=== PATIENT | female | born 1990 | race Caucasian/White ===

== ENCOUNTER 2016-11-08 12:07 | Emergency (ER) | payer OTHER ==
[~2016-11-08] VITALS: Ht 162.6 cm; Wt 55.0 kg
[2016-11-08 12:11] VITALS: BP 110/66; PULSE 93; RESP 14; TEMP 98.4; O2SAT 100
[2016-11-08] MEDS ORDERED: TRAZ50TA12 PO (13:54)
[2016-11-08] MEDS ORDERED: FLUO-1 PO (13:54)
--- NOTE | 2016-11-08 14:19 | PD ---
HPI Chief Complaint: Skin Problem Time Seen by Provider: 14:17 Travel History International Travel<30 days: No Contact w/Intl Traveler<30days: No Traveled to known affect area: No History of Present Illness HPI 25-year-old female presents to the emergency Department with complaint of a rash that has been going on for a couple months. The rashes to her face, bilateral upper extremities, bilateral lower extremities. She has been seen at a [facility], urgent care, dermatology. The heel builder scraped one of her spots said that there was nothing found. She was seen in urgent care last week and was treated for scabies and use the Elimite cream on Sunday. She is also being treated with Bactrim by the urgent care and is currently taking it at this time. She denies fever, chills, nausea, vomiting. Reports the rash is itchy at times. She says this started out as a blister appearing lesion and then scab over. Has been using hydrocortisone to some of the spots with improvement. Says that she has an infestation of mold, fleas, and possible other bugs in her house. No one else with a rash that occurs. Denies airway edema, stridor, wheezing, shortness of breath. Denies new detergents, lotions, soaps, medications, foods, and her mental exposures. Denies significant past medical history. No known allergies. No other modifying factors or associated signs and symptoms. PFSH Past Medical History Medical History: Denies Significant Hx Tetanus Vaccination: < 5 Years ?: Not LMP: 10/25/16 Social History Alcohol Use: No Tobacco Use: Yes Substance Use: No Allergies-Medications (Allergen,Severity, Reaction): Coded Allergies: No Known Allergies (Unverified , 11/08/16) Reported Meds & Prescriptions Reported Meds & Active Scripts Active Keflex (Cephalexin) 500 Mg Cap 500 Mg PO Q6H 10 Days Reported Trazodone (Trazodone HCl) 50 Mg Tab 50 Mg PO HS Prozac (Fluoxetine HCl) 10 Mg Cap 10 Mg PO DAILY Review of Systems Except as stated in HPI: all other systems reviewed are Neg Physical Exam Narrative GENERAL: Well-nourished, well-developed female patient, in no acute distress; afebrile, nontoxic-appearing SKIN: Warm and dry. Scabbed area to right facial cheek just around the mouth; multiple erythemic, scabbed, crusted appearing lesions to bilateral upper extremities, bilateral lower extremities; no signs of cellulitic process or infection. All are without drainage. HEAD: Atraumatic. Normocephalic. EYES: Pupils equal and round. No scleral icterus. No injection or drainage. ENT: Mucosa pink and moist. No erythema or exudates. No uvular edema. No uvular , palatal, or tonsillar deviation. Airway patent. Nasal turbinates appear normal without nasal blood, purulent drainage or septal hematoma. EARS: Bilateral pinnae and external canals appear within normal limits. Bilateral tympanic membranes without erythema, dullness or perforation. NECK: Trachea midline. No lymphadenopathy. CARDIOVASCULAR: Regular rate and rhythm. No murmur appreciated. RESPIRATORY: No accessory muscle use. Breath sounds clear and equal bilaterally. No retractions or tachypnea. GASTROINTESTINAL: Abdomen soft, non-tender, nondistended. Positive bowel sounds. No hepato-splenomegaly, or palpable masses. No guarding. MUSCULOSKELETAL: No obvious deformities. No clubbing. No cyanosis. No edema. NEUROLOGICAL: Awake and alert. Oriented 3. No obvious cranial nerve deficits. Motor grossly within normal limits. Normal speech. PSYCHIATRIC: Appropriate mood and affect; insight and judgment normal. Data Data Last Documented VS Vital Signs Date Time Temp Pulse Resp B/P Pulse Ox O2 Delivery O2 Flow Rate FiO2 11/08/16 12:11 98.4 93 14 110/66 100 Room Air [facility] Medical Decision Making Medical Screen Exam Complete: Yes Emergency Medical Condition: Yes Medical Record Reviewed: Yes Differential Diagnosis Bedbugs, insect bites, impetigo, nonspecific skin eruption Narrative Course 25-year-old female with rash and nonspecific skin eruption. I cannot verify what the rash is constant. It has been going on for a couple months. She has been seen at another hospital, at an urgent care, and has followed up with a heel builder. She has been treated for scabies and is currently taking Bactrim , with no relief of the rash. The rash is itchy. The patient is afebrile and nontoxic-appearing. She denies fever, chills, nausea, vomiting. The patient does have an area to the right side of her mouth that is scabbed over and crusty -looking. I will prescribe the patient Keflex, along with Bactrim. Instructed patient to follow up with dermatology; during her visit she said she called has an appointment tomorrow morning at 8:15 AM with a heel builder. Keflex prescribed for home. Patient is medically cleared and stable for discharge. Discussed reasons to return to the emergency department. Instructed patient to follow up with primary care provider. Patient agrees with treatment plan. The patients vital signs are stable and the patient is stable for outpatient follow- up and treatment. Patient discharged home, stable and in no acute distress. Diagnosis Primary Impression: Rash and nonspecific skin eruption Referrals: [employer] Primary Care Physician Patient Instructions: Acute Rash (ED), Bed Bugs (ED), General Instructions, Insect Bite or Sting (ED), Scabies (ED) Departure Forms: Tests/Procedures, Work Release Enter return to work date: Nov 13, 2016 Additional Instructions: Follow-up with dermatology Follow-up with primary care provider Med/Other Pt SpecificInfo: Prescription(s) given, No Meds Exist/No RX given Scripts Cephalexin (Keflex)500 Mg Vyr063 Mg PO Q6H 10 Days Ref 0 Prov:Jenna Raymundo 11/08/16 Disposition: 01 DISCHARGE HOME Condition: Stable Jenna Raymundo Nov 08, 2016 14:19
[2016-11-08] MEDS ORDERED: CEPH-460 PO ×2 (14:27→14:28)
== END 2016-11-08 15:16 | disposition home or self-care (01) ==
LOC: NEPB 12:07
DX: R21 Rash and other nonspecific skin eruption (principal); Z72.0 Tobacco use
CPT/HCPCS: 99282